=== PATIENT | female | born 1965 | race Caucasian/White ===

== ENCOUNTER 2019-02-01 07:32 | Day surgery (SDC) | payer SELFPAY ==
[~2019-02-01] VITALS: Ht 152.4 cm; Wt 76.2 kg
[2019-02-01 08:39] LABS: BARBITURATES NEGATIVE (NEGATIVE); COCAINE NEGATIVE (NEGATIVE); METHADONE NEGATIVE (NEGATIVE); OXCYCODONE NEGATIVE (NEGATIVE); TETRAHYDROCANNABIONOL POSITIVE (NEGATIVE); TRICYLIC ANTIDEPRESSANTS NEGATIVE (NEGATIVE)
[2019-02-01 11:13] VITALS: BP 116/79
== END 2019-02-01 10:47 | disposition home or self-care (01) | DRG 951 ==
LOC: ENDO 07:32 → ORM 09:30 → ENDO 10:47
PROVIDERS: ATTEND Surgery
PROC: 0DBM8ZX Excision of Descending Colon, Via Natural or Artificial Opening Endoscopic, Diagnostic (ICD-10-PCS; principal; 2019-02-01)
DX: Z12.11 Encounter for screening for malignant neoplasm of colon (principal); K63.3 Ulcer of intestine; K64.8 Other hemorrhoids; K43.9 Ventral hernia without obstruction or gangrene; K57.30 Diverticulosis of large intestine without perforation or abscess without bleeding; Z80.0 Family history of malignant neoplasm of digestive organs